=== PATIENT | male | born 1980 | race Caucasian/White ===

== ENCOUNTER 2017-12-25 21:30 | Emergency (ER) | payer SELFPAY ==
[~2017-12-25] VITALS: Ht 177.8 cm; Wt 72.6 kg
[2017-12-25] MEDS ORDERED: LORAZEPAM 0.5 MG TABLET ONE (22:56)
[2017-12-25] MEDS ORDERED: LORAZEPAM 0.5 MG TABLET PO ONE (23:00)
--- NOTE | 2017-12-25 23:00 | NUR ---
Patient discharged to home in stable conditon. Written and verbal after care instructions given. Patient verbalizes understanding of instructions. Patient able to ambulate unassisted with steady gait. Patient left with all of his belongings.
[2017-12-25 23:03] VITALS: BP 114/74
== END 2017-12-25 23:04 | disposition home or self-care (01) ==
LOC: ER 21:32
DX: F41.0 Panic disorder [episodic paroxysmal anxiety] (principal); F41.9 Anxiety disorder, unspecified; F32.9 Major depressive disorder, single episode, unspecified; Z95.0 Presence of cardiac pacemaker
CPT/HCPCS: A4663